=== PATIENT | male | born 1940 | race Caucasian/White ===

== ENCOUNTER 2018-12-04 16:25 | Inpatient (IN) | payer OTHER ==
[~2018-12-04] VITALS: Ht 180.3 cm; Wt 72.4 kg
[~2018-12-04 16:25] MED LIST: ALBU3IS INH; ALBU90OI PO; ALBUIS INH; ALLO300 PO; ASPI81CH PO; ATOR20 PO; ATOR80 PO; AZIT250 PO; BUDE6HFA INH; CLOP75 PO; FURO40 PO; HYDCHL25; HYDCHL25 PO; HYDR1TAB94 PO; IPRAIS NEB; K-TAB ER20 MEQ PO; LEVO750 PO; METF500 PO; METO25 PO; METO50ER PO; NITR.4SL SL; PRED20 PO; TIOT18 PO; TRAM50 PO
[2018-12-04 16:45] LABS: BASOPHILS ABSOLUTE AUTO 0.07 K/mm3 (0.00-0.23); BASOPHILS PERCENT AUTO 1 % (0-2); EOSINOPHILS ABSOLUTE AUTO 0.29 K/mm3 (0.00-0.68); EOSINOPHILS PERCENT AUTO 3 % (0-6); Hematocrit 43.5 % (37.0-53.0); Hemoglobin 13.5 g/dL (13.5-17.5); IMMATURE GRAN ABSOLUTE AUTO 0.41 K/mm3 (0.00-0.10); IMMATURE GRAN PERCENT AUTO 4 % (0-1); LYMPHOCYTES ABSOLUTE AUTO 3.25 K/mm3 (0.84-5.20); LYMPHOCYTES PERCENT AUTO 29 % (21-46); MONOCYTES ABSOLUTE AUTO 0.75 K/mm3 (0.16-1.47); MONOCYTES PERCENT AUTO 7 % (4-13); Mean Corpuscular HGB 31.1 pg (26.0-34.0); Mean Corpuscular Volume 100 fL (80-100); Mean Platelet Volume 9.1 fL (9.1-12.4); NEUTROPHILS ABSOLUTE AUTO 6.28 K/mm3 (1.96-9.15); NEUTROPHILS PERCENT AUTO 57 % (41-73); Platelet Count 273 K/mm3 (150-400); RDW Coefficient Variation 13.9 % (11.7-14.2); RDW Standard Deviation 51.9 fL (35.1-46.3); Red Blood Cell Count 4.34 M/mm3 (4.30-5.90); White Blood Cell Count 11.05 K/mm3 (4.00-11.30)
[2018-12-04 16:58] LABS: Ethanol (Alcohol), Blood, Med <3 mg/dL; Troponin I <0.015 ng/mL (0.000-0.040)
[2018-12-04 17:08] LABS: Albumin, Blood 3.2 g/dL (3.4-5.0); Albumin/Globulin Ratio 1.1 (0.8-1.8); Bilirubin, Total 0.6 mg/dL (0.1-1.0); Bun/Creatinine Ratio 12.1 (12.0-20.0); Creatinine, Blood 1.24 mg/dL (0.60-1.20); Potassium, Blood 4.1 mmol/L (3.5-5.5); Total Protein, Blood 6.2 g/dL (6.4-8.2)
[2018-12-04 17:15] LABS: Calcium, Ionized (POC) 1.18 mmol/L (1.10-1.46); Chloride (POC) 100 mmol/L (98-108); Creatinine (POC) 1.2 mg/dL (0.8-1.3); Glucose (ISTAT POC) 151 mg/dL (70-99); Hemoglobin (POC) 13.3 g/dL (13.5-17.5); Potassium (POC) 4.8 mmol/L (3.5-5.5); Sodium (POC) 140 mmol/L (135-148); Total CO2 (POC) 29 mmol/L (21-32)
[2018-12-04 17:57] LABS: Source, Urine Catheter
[2018-12-04 18:05] LABS: Appearance, Urine Clear (Clear); Bilirubin, Urine Neg (Neg); Blood, Urine 3+ (Neg); Color, Urine Yellow (P-Yellow); Glucose Qualitative, Urine Neg (Neg); Ketones, Urine Neg (Neg); Leukocyte Esterase, Urine Neg (Neg); Nitrite, Urine Neg (Neg); Protein, Urine 3+ (Neg); Specific Gravity, Urine 1.015 (1.003-1.022); Urobilinogen, Urine NORM (Normal)
[2018-12-04 18:14] LABS: Red Blood Cells, Urine 0-2 /hpf (0-2); White Blood Cells, Urine 0-2 /hpf (0-5)
[2018-12-04 18:15] LABS: Bacteria Not Seen /hpf; Squamous Epithelial Cells Few /hpf (Few)
[2018-12-04] MEDS ORDERED: TRAZ100 PO (18:35)
--- NOTE | 2018-12-04 19:30 | NUR ---
ARRIVAL TO UNIT PT ARRIVED TO ICU 9 VIA ER FLAQUITA. INTUBATED AND SEDATED. BILAT WRIST RESTRAINTS IN PLACE. RESTRAINTS REMOVED FOR TRANSFER AND CARES. ON ARRIVAL PT OPENING EYES SPONTANEOUSLY, FOLLOWING SIMPLE COMMANDS. CHEST TUBE IN PLACE TO WATER SEAL, ATTACHED TO SUCTION ON ARRIVAL. VITALS STABLE, SEE FLOWSHEET. LAB IN MULTIPLE TIMES, UNABLE TO LOCATE VESSEL FOR LABS. PLAN TO OBTAIN ADDITIONAL IV ACCESS AND OBTAIN SPECIMEN. PT HAS MULTIPLE ABRASIONS/SKIN TEARS. C SPINE COLLAR IN PLACE.
--- NOTE | 2018-12-04 20:30 | NUR ---
C-SPINE COLLAR CLEARNACE & FAMILY UPDATED PT'S DAUGHTER MITCHELL AND HER AT BEDSIDE, RE[facility]ING TO [facility]. [facility]. BARAKAT CONTACTED. PER DR. BARAKAT OK TO REMOVE C-SPINE COLLAR. DR. BARAKAT UPDATED FAMILY VIA PHONE CONVERSATION.
[2018-12-04 20:33] LABS: Base Excess Venous 3.7 mmol/L; Bicarbonate Venous 25.7 mmol/L (24.0-30.0); PCO2 Venous 56.6 mmHg (38-42); PO2 Venous 30.5 mmHg (38-42); pH Blood Venous 7.33 (7.34-7.37)
[2018-12-04] MEDS ORDERED: ATOR40TA PO (21:57)
[2018-12-04] MEDS ORDERED: Omeprazole20 M1 PO (21:57)
[2018-12-04] MEDS ORDERED: ALLO300 PO (21:58)
[2018-12-04] MEDS ORDERED: ELIQUIS5 MG PO (21:58)
[2018-12-04] MEDS ORDERED: Furosemide20 MG PO (21:59)
[2018-12-04] MEDS ORDERED: METF500C PO (21:59)
[2018-12-04] MEDS ORDERED: METO25 (22:00)
[2018-12-04] MEDS ORDERED: POTA10T PO (22:01)
[2018-12-04] MEDS ORDERED: AZIT250 PO (22:03)
[2018-12-04] MEDS ORDERED: NITR.4SL SL (22:04)
[2018-12-04] MEDS ORDERED: Ventolin5 MG/1 ML INH (22:05)
[2018-12-04] MEDS ORDERED: ALBU90OI61 INH (22:06)
[2018-12-04] MEDS ORDERED: MOME220I INH (22:08)
--- NOTE | 2018-12-05 00:40 | NUR ---
PHYSICIAN COMMUNICATION 0000 - PT HYPOTENSIVE, MINIMAL URINE OUTPUT. 500 ML BOLUS STARTED. PROPOFOL TITRATED. DR. DONATO NOTIFIED AND STATED TO CONTACT YUVAL FOR NON VENTILATOR RELATED TOPICS. DR. BARAKAT NOTIFIED, ORDER FOR BOLUS RECEIVED.
[2018-12-05 03:40] LABS: BASOPHILS ABSOLUTE AUTO 0.02 K/mm3 (0.00-0.23); BASOPHILS PERCENT AUTO 0 % (0-2); EOSINOPHILS ABSOLUTE AUTO 0.09 K/mm3 (0.00-0.68); EOSINOPHILS PERCENT AUTO 1 % (0-6); Hematocrit 31.4 % (37.0-53.0); Hemoglobin 9.7 g/dL (13.5-17.5); IMMATURE GRAN ABSOLUTE AUTO 0.04 K/mm3 (0.00-0.10); IMMATURE GRAN PERCENT AUTO 0 % (0-1); LYMPHOCYTES ABSOLUTE AUTO 0.85 K/mm3 (0.84-5.20); LYMPHOCYTES PERCENT AUTO 8 % (21-46); MONOCYTES ABSOLUTE AUTO 0.83 K/mm3 (0.16-1.47); MONOCYTES PERCENT AUTO 7 % (4-13); Mean Corpuscular HGB 30.7 pg (26.0-34.0); Mean Corpuscular HGB Conc 30.9 g/dL (31.5-36.5); Mean Corpuscular Volume 99 fL (80-100); Mean Platelet Volume 9.5 fL (9.1-12.4); NEUTROPHILS ABSOLUTE AUTO 9.34 K/mm3 (1.96-9.15); NEUTROPHILS PERCENT AUTO 84 % (41-73); Platelet Count 150 K/mm3 (150-400); RDW Coefficient Variation 14.1 % (11.7-14.2); RDW Standard Deviation 51.5 fL (35.1-46.3); Red Blood Cell Count 3.16 M/mm3 (4.30-5.90); White Blood Cell Count 11.17 K/mm3 (4.00-11.30)
[2018-12-05 04:13] LABS: Alanine Aminotransfer (ALT/SGP 19 U/L (12-78); Albumin, Blood 2.1 g/dL (3.4-5.0); Albumin/Globulin Ratio 1.1 (0.8-1.8); Alk Phos 45 U/L (50-136); Anion Gap 6 mmol/L (6-16); Aspartate Aminotrans (AST/SGOT 67 U/L (12-37); Bilirubin, Total 0.5 mg/dL (0.1-1.0); Blood Urea Nitrogen 16 mg/dL (8-24); Bun/Creatinine Ratio 14.7 (12.0-20.0); CO2, Blood 26 mmol/L (21-32); Calcium, Blood 7.4 mg/dL (8.5-10.1); Chloride, Blood 111 mmol/L (98-108); Creatinine, Blood 1.09 mg/dL (0.60-1.20); Globulin, Blood 1.9 g/dL (2.2-4.0); Glomerular Filtration Rate >60 (60-); Glucose, Blood 120 mg/dL (70-99); Potassium, Blood 3.9 mmol/L (3.5-5.5); Sodium, Blood 143 mmol/L (136-145)
--- NOTE | 2018-12-05 06:14 | NUR ---
SUMMARY SINCE PREVIOUS NOTE PT HAS HAD EPISODES OF HYPOTENSION THAT ARE RESPONSIVE TO FLUID BOLUS AND REDUCTION OF SEDATION. PT TOLERATED REDUCING OF SEDATION BUT DID BEGIN TO REACH FOR LINES/TUBES AND REQUIRED RESTRAINTS. PT HAS HAD CONTINUED LOW URINE OUTPUT. CHEST TUBE WITH MINIMAL OUTPUT THROUGHOUT NIGHT. ABLE TO GAIN ADDITIONAL IV ACCESS USING SONOSITE AND LAB SPECIMENTS DRAWN FROM IV'S PT HAS DIFFICULT ACCESS. VARIOUS FAMILY MEMBERS IN AND OUT THROUGHOUT THE NIGHT AND UPDATED. ADMIT HISTORY/MED REC COMPLETED WITH PT'S DAUGHTER MITCHELL, ONE OF HIS TWO HEALTHCARE POA'S. PT'S SECOND POA AND DAUGHTER SELVIN PROVIDED ADVANCED DIRECTIVE. WILL DISCUSS WITH DAY SHIFT RN FOR MD ROUNDING PT'S CODE STATUS, HIS HX OF DVT AND NEED FOR DVT PROPHY, SWELLING OF MULTIPLE DAYS TO LEFT ARM, AND POSSIBLE CHEST X-RAY FOR RASSESSMENT OF RESP STATUS. PLAN IS FOR VENTILATOR WEAN AND SEDATION VACATION THIS MORNING AT [address] DONATO.
--- NOTE | 2018-12-05 08:21 | NUR ---
0700-ASSUMED CARE OF PT. PT IS INTUBATED AND VENTED. LIGHTLY SEDATED WITH PROPOFOL @ 5MCG/KG/MIN. PT OPENS EYES TO VOICE. FOLLOWING COMMANDS. NODS/SHAKES HEAD TO YES/NO QUESTIONS. R CHEST TUBE IN PLACE TO LOW CONTINUOUS SUCTION. AIR LEAK NOTED IN CHEST TUBE. PT COMPLAINTS OF PAIN. 0730-SPONTANEOUS BREATHING TRIAL WAS STARTED AT THIS TIME. PT WAS STARTED WITH 8/5, PT WAS PULLING BELOW 250 ON TV, INCREASED TO 9/5. TV IMPROVED. PROPOFOL DRIP WAS TURNED OFF DURING AT THIS TIME. PT WAS MEDICATED WITH FENTANYL 12.5MCG FOR PAIN. 0815-DR. DONATO WAS NOTIFIED REGARDING PT'S CONDITION. PS WAS DOWN TO 5/5. PT TOLERATING. PULLING GOOD TIDAL VOLUMES
--- NOTE | 2018-12-05 10:57 | NUR ---
0918-PT WAS EXTUBATED AT THIS TIME. PLACED ON 4LPM NC. 0930- NOTED R UPPER CHEST SUBCUTANEOUS SWELLING HAS INCREASED FROM INITIAL ASSESSMENT SHORTLY AFTER PT WAS PLACED ON WATERSEAL. CREPITUS STILL THE SAME SAME. NOTIFIED DR. DONATO. SHE CAME TO PT'S ROOM AND ASSESSED PATIENT. PLACED CHEST TUBE TO WALL SUCTION ORDERED BY DR. DONATO. 0940-DR. BARAKAT WAS NOTIFIED REGARDING INCREASING OF SUBCUTANEOUS SWELLING, HE WAS ALSO NOTIFIED REGARDING CHEST TUBE WAS PLACED BACK ON SUCTION PER DOCTOR DONATO. INFORMED HIM PT WAS ALSO EXTUBATED. NO ORDERS RECEIVED. 1050-SUBSTATION TECHNICIAN AT BEDSIDE TO FOR THE VENOUS ULTRAOUND. SWELLING TO R CHEST HAS REMAINED THE SAME. CREPITUS STILL THE SAME FROM INITIAL ASSESSMENT.
--- NOTE | 2018-12-05 12:18 | NUR ---
PT SEEN BY DR. AGUILAR.
--- NOTE | 2018-12-05 15:57 | NUR ---
1245-SEEN BY DR. BARAKAT AT THIS TIME. UPDATED HIM OF PT'S STATUS. HE PLACED PT'S CHEST TUBE TO WATER SEAL. HE CHANGED PT'S CHEST TUBE DRESSING. HE DID NOTICE THE INCREASING SUBCUTANEOUS SWELLING TO R CHEST. 1340-DR. BARAKAT CAME BACK TO CHECK ON PT'S R CHEST. SWELLING HAS DECREASED TO 50% FROM WHERE IT WAS. STILL WITH CREPITUS. CHEST TUBE IS STILL TO WATER SEAL. 9417-PT WAS HELPED TRANSFERED FROM THE BED TO CHAIR WHICH PT TOLERATED THE TRANSFER VERY WELL. PT WAS ON HIS FEET. PT USED A WALKER WITH BED TO CHAIR TRANSFER. CURRENTLY PT IS SLEEPING AFTER RECEIVING FENTANYL. STILL ON 4LPM NC.
--- NOTE | 2018-12-05 17:42 | NUR ---
SHIFT SUMMARY: PT IS SITTING ON THE CHAIR AT THIS TIME, EATING HIS DINNER. PT WAS ABLE TO TRANSFER FROM BED TO CHAIR WITHOUT ANY DIFFICULTY USING A WALKER. CHEST TUBE STILL TO WATER SEAL, STILL HAS AIR LEAK. SUBCUTANEOUS EMPHYSEMA/ CREPITUS STILL PRESENT BUT IMPROVED. OCCASSIONAL COUGHING IN BETWEEN BITES NOTED.
--- NOTE | 2018-12-05 19:00 | NUR ---
ASSUMED CARE OF PT, REPORT RECEIVED. PT IS RESTING QUIETLY AND APPEARS TO BE SLEEPING AT THIS TIME, SATS MID 90S ON 2 L/MIN VIA NC , RESP EVEN AND REG, SHALLOW BREATHING IS NOTED.
--- NOTE | 2018-12-05 20:14 | NUR ---
PT AWAKENS EASILY FOR ASSESSMENT, DENIES N/V, DENIES CP/PRESSURE OTHER THAN THAT ASSOCIATED WITH RIB FX AND CHEST TUBE, DENIES INCREASING SOB/DYSPNEA, VOICE QUALITY IS SOFT AND SENTANCES ARE NOTED SHORT. BREATHING IS SHALLOW, SPLINTING RESPIRATIONS, SATS DECREASE TO 89-90% WITH DECREASE IN PAIN CONTROL. PT REPORTS PAIN 7/10 EXACERBATED BY BREATHING OVER AREAS OF RIB FX AND CHEST TUBE, HE DENIES PAIN IN OTHER LOCATIONS CURRENTLY. CREPITUS/SUBCUTANEOUS EMPHYSEMA NOTED OVER RIGHT UPPER CHEST, RIGHT LUNG CLEAR THROUGHOUT DIMIN MID TO BASE, LEFT WITH EXPIRATORY PLEURAL RUB OVER UPPER LOBE, CLEAR, DIM BASE, OCCASIONAL NONPRODUCTIVE COUGH IS NOTED. CHEST TUBE REMAINS IN PLACE TO RIGHT CHEST TO WATER SEAL AT THIS TIME, GOOD FLUCTUATION WITH RESPIRATION NOTED IN PLEURAVAC CHAMBER, DRESSING IS CDI.
[2018-12-06 04:01] LABS: Hematocrit 32.9 % (37.0-53.0); Hemoglobin 10.5 g/dL (13.5-17.5); Mean Corpuscular HGB 31.3 pg (26.0-34.0); Mean Corpuscular HGB Conc 31.9 g/dL (31.5-36.5); Mean Corpuscular Volume 98 fL (80-100); Mean Platelet Volume 9.9 fL (9.1-12.4); Platelet Count 169 K/mm3 (150-400); RDW Coefficient Variation 14.3 % (11.7-14.2); RDW Standard Deviation 51.4 fL (35.1-46.3); Red Blood Cell Count 3.36 M/mm3 (4.30-5.90); White Blood Cell Count 10.22 K/mm3 (4.00-11.30)
[2018-12-06 04:18] LABS: Bun/Creatinine Ratio 19.8 (12.0-20.0); Calcium, Blood 8.5 mg/dL (8.5-10.1); Creatinine, Blood 1.31 mg/dL (0.60-1.20); Potassium, Blood 4.3 mmol/L (3.5-5.5)
--- NOTE | 2018-12-06 06:31 | NUR ---
CONTACTED DR LIRIANO REGARDING PT LOW URINE OUTPUT THIS SHIFT, ORDERS OBTAINED FOR NS AT 75 ML/HR X 1 LITER. CREPITUS/SUBCUTANEOUS EMPHYSEMA CONTINUES TO RIGHT ANTERIOR CHEST, SWELLING IS SLIGHTLY INCREASED THIS AM, LUNG SOUNDS CONTINUE WITHOUT CHANGES THIS SHIFT, OXYGEN REQUIREMENTS UNCHANGED FROM 1844, PAIN CONTROL IMPROVED FOLLOWING TORADOL 30 MG IV X 1. PT STATES THAT PAIN IS WELL CONTROLLED WITH MOVEMENT, DOES CONTINUE TO BE RATED HIGH WITH COUGH, PT DECLINED OFFERED PAIN MEDICATION JUST PRIOR TO CXR THIS AM AND CONTINUED TO DECLINE PAIN MEDS ON RETURN FROM TRANSPORT. OTHERWISE NO ACUTE CHANGES THIS SHIFT
--- NOTE | 2018-12-06 08:00 | NUR ---
RECEIVED REPORT FROM GLORIA PINO, AND ASSUMED CARE OF PT.
--- NOTE | 2018-12-06 08:31 | NUR ---
DR. CERON AT BEDSIDE FOR EVALUATION. DR. CERON REMOVE OXYGEN. SATS REMAINING ABOVE 90%, DENIES SOB AND PAIN.
--- NOTE | 2018-12-06 08:40 | NUR ---
PATIENT DESATS TO 87% ON ROOM AIR, PLACED PT ON 2L O2 NC, SATS INCREASED TO 94%, REDUCED OXYGEN FLOW TO 1L, SATS REMAINING ABOVE 90%.
--- NOTE | 2018-12-06 11:01 | NUR ---
COMPASS AT BEDSIDE.
--- NOTE | 2018-12-06 14:14 | NUR ---
NURSING SUMMARY ALERT AND ORIENTED X 4. NSR HR 80'S WITH 1ST DEGREE AVB AND PAC'S. CHEST TUBE TO RIGHT SIDE SET UP TO WATER SEAL, LEAK NOTED, RIGHT UPPER CHEST/SHOULDER CREPITUS, LUNGS CLEAR, DIMINISHED AT THE BASES. ASSISTED OUT OF BED TO THE CHAIR TODAY FOR TWO HOURS. MULTIPLE VISITORS TODAY. CRUSH MEDICATIONS IN APPLE SAUCE, APPETITE IMPROVING, REGULAR DIET. PUNCTURE SITE TO RIGHT SIDE HEALING WELL. DENIES PAIN THAT REQUIRES PAIN MEDICATIONS. WILL DISCONTINUE MIDDLETON TODAY, OUTPUT THUS FAR DURING THIS SHIFT IS 200 CC. NS INFUSING AT 75 ML/HR FOR 1L. MULTIPLE FAMILY VISITORS TODAY. RIGHT AC SALINE LOCK, RIGHT WRIST 20 G INFUSING NS AT 75 ML/HR.
--- NOTE | 2018-12-06 15:27 | NUR ---
Pt open eyes with verbal stimuli. Pt informs this PC of his current health status, reflecting on the events leading up to his hospice stay. Pt very sikhism and open to talk about his beliefs. Discussion on eschatology ensued with the pt engaging well. Pt reports members of his henry community have visited and provided some spiritual support. I offered to keep the pt in my prayers and states in agreement. "Everybody needs prayer." I will remain available.
--- NOTE | 2018-12-06 18:35 | NUR ---
NURSING SUMMARY NO CHANGES FROM LAST NURSING SUMMARY EXCEPT MIDDLETON CATHETER DISCONTINUED WITH 350 CC ARACELIS URINE OUTPUT, AWAITING FIRST VOID, URINAL AT BEDSIDE.
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
--- NOTE | 2018-12-07 04:09 | NUR ---
PT VOIDS POST MIDDLETON ARE SMALL IN AMOUNT, PT'S URINE OUTPUT WAS LOW PRIOR TO MIDDLETON DC, HE STATES THAT HE DOES FEEL THAT HIS BLADDER IS EMPTIED AFTER 50 ML VOID.
[2018-12-07 05:57] LABS: BASOPHILS PERCENT AUTO 0 % (0-2); EOSINOPHILS PERCENT AUTO 0 % (0-6); Hematocrit 31.9 % (37.0-53.0); Hemoglobin 10.2 g/dL (13.5-17.5); IMMATURE GRAN ABSOLUTE AUTO 0.04 K/mm3 (0.00-0.10); IMMATURE GRAN PERCENT AUTO 1 % (0-1); LYMPHOCYTES ABSOLUTE AUTO 0.57 K/mm3 (0.84-5.20); LYMPHOCYTES PERCENT AUTO 8 % (21-46); MONOCYTES ABSOLUTE AUTO 0.57 K/mm3 (0.16-1.47); MONOCYTES PERCENT AUTO 8 % (4-13); Mean Corpuscular HGB 31.5 pg (26.0-34.0); Mean Corpuscular Volume 99 fL (80-100); Mean Platelet Volume 9.8 fL (9.1-12.4); NEUTROPHILS ABSOLUTE AUTO 6.32 K/mm3 (1.96-9.15); NEUTROPHILS PERCENT AUTO 84 % (41-73); Platelet Count 173 K/mm3 (150-400); RDW Coefficient Variation 14.1 % (11.7-14.2); RDW Standard Deviation 50.9 fL (35.1-46.3); Red Blood Cell Count 3.24 M/mm3 (4.30-5.90)
[2018-12-07 06:13] LABS: Anion Gap 5 mmol/L (6-16); Blood Urea Nitrogen 36 mg/dL (8-24); Bun/Creatinine Ratio 29.3 (12.0-20.0); CO2, Blood 28 mmol/L (21-32); Calcium, Blood 8.4 mg/dL (8.5-10.1); Chloride, Blood 106 mmol/L (98-108); Creatinine, Blood 1.23 mg/dL (0.60-1.20); Glomerular Filtration Rate >60 (60-); Glucose, Blood 114 mg/dL (70-99); Potassium, Blood 4.7 mmol/L (3.5-5.5); Sodium, Blood 139 mmol/L (136-145)
--- NOTE | 2018-12-07 07:27 | NUR ---
PT RESTS QUIETLY THROUGHOUT SHIFT, PAIN RATED WELL CONTROLLED WITH COUGH AFTER NORCO X 1 GIVEN WITH HS MEDS. CREPITUS/SUBCUTANEOUS EMPHYSEMA TO RIGHT ANTERIOR UPPER CHEST REMAINS STABLE, AIR LEAK EVIDENT IN PLEURAVAC CHAMBER HAS DECREASED THIS SHIFT. PT WAS ABLE TO GIVE STRONG COUGH WITH 0400 ASSESSMENT. SATS IMPROVED TO 98-99% WITH OXYGEN @ 2 L/MIN VIA NC. VOIDS WELL IN URINAL, LOW URINE OUTPUT THIS SHIFT, PLAN TO BLADDER SCAN WITH NEXT VOID. PT DOES FEEL THOUGH HIS BLADDER IS EMPTY AFTER VOIDS BUT IS AGREEABLE TO BLADDER SCAN. OTHERWISE NO ACUTE CHANGES THIS SHIFT.
--- NOTE | 2018-12-07 07:55 | NUR ---
DR. CERON AT BEDSIDE FOR EVALUATION.
--- NOTE | 2018-12-07 08:30 | NUR ---
DR. BARAKAT AT BEDSIDE, STATED HE MAY REMOVE THE CHEST TUBE TODAY.
--- NOTE | 2018-12-07 09:51 | NUR ---
DR. BARAKAT AT BEDSIDE, HE CLAMPED THE CHEST TUBE, ORDERED 2 VIEW CXR FOR 1300, AND GAVE ORDERS OF SUPPLIES HE NEEDS TO DISCONTINUE THE CHEST TUBE LATER TODAY.
--- NOTE | 2018-12-07 13:00 | NUR ---
PATIENT TAKEN TO RADIOLOGY FOR CXR.
--- NOTE | 2018-12-07 13:52 | NUR ---
NURSING SUMMARY ALERT AND ORIENTED X4, SLOW VERBAL RESPONSE TO QUESTIONS. LUNGS CLEAR, DIMINISHED AT BASES, 1-2 L O2 NC, KEEPING SATS ABOVE 90%, CHEST TUBE TO RIGHT CHEST, CLAMPED BY DR. BARAKAT THIS MORNING, CHEST XRAY COMPLETED AT 1300, NO ADDITIONAL SOB OR DIFFICULTY BREATHING, DR. BARAKAT MIGHT DISCONTINUE THE CHEST TUBE THIS AFTERNOON AFTER REVIEWING THE CHEST XRAY. PATIENT DOES DESAT WITH EXERTION BUT SATS COME UP NICELY WITHIN A COUPLE OF MINUTES. CALLS FOR ASSISTANCE TO THE BATHROOM APPROPRIATELY, VOIDS PER BATHROOM OR URINAL. EDEMA TO BILATERAL ARMS, NOTED MORE EDEMA TO ARMS ABOVE DRESSINGS AND LAB DRAW WRAPS, REMOVED DRESSINGS AND ELEVATED ARMS ON PILLOWS. RIGHT CHEST PUNCTURE SITE WITH DRESSING IN PLACE, CREPITUS, C/O MILD RIB FRACTURE AREA PAIN WITH COUGHING AND USING THE INCENTIVE SPIROMETER, GAVE TORADOL IV. TOLERATING A REGULAR DIET, EATING WELL. RIGHT AC 20G SALINE LOCK AND RIGHT WRIST 20G SALINE LOCK.
--- NOTE | 2018-12-07 16:45 | NUR ---
DR. BARAKAT AT BEDSIDE, ASSISTED WITH DISCONTINUING PT'S RIGHT CHEST TUBE. PATIENT TOLERATED WELL, O2 SATS REMAINING ABOVE 90%, 2L NC O2 SATS 97%, REDUCED OXYGEN FLOW TO 1L, SATS REMAINING ABOVE 90%.
--- NOTE | 2018-12-07 19:00 | NUR ---
ASSUMED CARE ASSUMED CARE OF PATIENT. AWAKE AND ALERT. ORIENTED X 3 AND COOPERATIVE WITH CARE. PT IS ABLE TO ASSIST WITH REPOSITIONING. DENIES C/O PAIN OR DISCOMFORT AT THIS TIME, BUT DOES MOVE STIFFLY. O2 @ 1LNC. RESPIRATIONS EVEN AND UNLABORED AT REST. OCCASIONAL WEAK NON-PRODUCTIVE COUGH. USES IS WITH ENCOURAGEMENT. MONITOR SHOWS NSR WITH FIRST DEGREE AV BLOCK AND OCCASIONAL PACs, RATE 70s. VOIDING SMALL AMOUNTS (50-75CC) OF URINE AT A TIME. ANTERIOR RIGHT CHEST WITH SUBCUTANEOUS EMPHYSEMA AND CREPITUS NOTED. DRSG C/D/I. SEE SHIFT ASSESSMENT FOR FULL ASSESSMENT.
--- NOTE | 2018-12-08 01:30 | NUR ---
PAIN/CONFUSION PT AWAKE AND ALERT, BUT SLIGHTLY DOSPRIENTED TO PLACE AND TIME. WEAK ATTEMPT TO CLIMB OUT OF BED. PT STATES "I NEED TO GET UP SO I CAN TAKE A SHOWER." REORIENTED TO TIME AND PLACE. PT C/O GENERAL PAIN WELL NECK PAIN. MEDICATED WITH TORADOL 15MG IV. REPOSITIONED FOR COMFORT.
--- NOTE | 2018-12-08 05:54 | NUR ---
SHIFT SUMMARY NO ACUTE CHANGES DURING NOC. SLEPT VERY LITTLE THROUGH BEGINNING/MIDDLE OF SHIFT. PT SLEPT FROM APPROXIMATELY 0230 TO 0600. ROUSES TO STIMULI. MEDICATED X 1 WITH IV TORADOL FOR PAIN WITH GOOD RELIEF. VSS T/O NOC. O2 NOW @ 1.5LNC. RESPIRATIONS UNLABORED AT REST, OCCASIONALLY TACHYPNEIC. OCCASIONAL MOIST NON-PRODUCTIVE COUGH. USES IS WITH REMINDERS/ENCOURAGEMENT. CONTINUES TO VOID 50-75CC OF URINE Q1-2H. NO CHANGE NOTED IN SUBCUTANEOUS EMPHYSEMA/CREPITUS. WILL REPORT TO DAY SHIFT RN WHEN AVAILABLE.
--- NOTE | 2018-12-08 09:17 | NUR ---
NURSING ICU DAYSHIFT: Assumed care of pt at approx 0700. A/O, pleasant, cooperative w/care. Speech is mildly slow/slurred though this improved after being fully awake and having some oral care. C/O 6/10 neck pain/discomfort. Skin is fragile w/scattered bruising and multiple abrasions. Heart monitor in place, NSR w/1st degree block, PVC's/PAC's, no c/o CP/pressure, HTN prior to a.m. meds. L/S w/scattered wheezes t/o, dim bases, fin bibasilar crackles, crepitus noted to R ACW and R posterior mid torso. Abd SNT, BT+, voiding small amts of urine frequently though w/o difficulty. PIV x1, s/l. No s/s of acute distress at this time. Seen by PMD, new d/o received. Pt changed to medical status w/o tele, awaiting bed assignment. PMD place pt on RA though O2 sat decreased to mid 80's at later assessment, placed pt back on 1L NC. 2V CXR completed, pt currently OOB in a chair, tolerating well, cont to monitor for any changes.
--- NOTE | 2018-12-08 13:07 | NUR ---
NURSING ICU TRANSFER SUMMARY: No acute changes noted t/o the a.m. Daughters at bedside intermittently t/o the a.m., updates provided. Pt continued to c/o neck sorenes t/o the a.m., toradol administered, pt appears more comfortable at this time. Worked w/therapy, tolerated fairly well though continues to experience dyspnea w/exertion, required 2L NC w/exertion to maintain O2 sat >90%. Seen by surgeon, ok'd for discharge for surgery standpoint. Pt and family deny any questions/needs at this time. Pt remains medical status, bed surgical unit room assignment received, awaiting callback from accepting RN. Call light remains in reach, cont to monitor until transfer is completed.
--- NOTE | 2018-12-08 15:23 | NUR ---
PERMISSION FOR CARE PATIENT GAVE THIS RAT EXTERMINATOR PERMISSION TO CARE FOR HIM DURING THE DAY OF DECEMBER 09, 2017
--- NOTE | 2018-12-08 17:25 | NUR ---
PT TRANSFERED FROM ICU. ON 1L O2, MAKES A BIG DIFFERENCE FOR PT'S O2 LEVEL. PT LUNGS WHEESING HEARD ALL THROUGHOUT. ENCOURAGING INCENTIVE SPIROMETER USE EVERY HR. PT USES URINAL. DEPENDS IN PLACE WELL. SKIN BRUISED AND REDENED THROUGHOUT. SCARS AND WOOUNDS, IMAGES IN CHART. NO C/O PAIN SINCE TRANSFER. C/O NO BOWEL MOVEMENT IN A WEEK, MEDICATED PER EMAR. CALL ALANA BREAUX, WILL CTM.
--- NOTE | 2018-12-09 04:31 | NUR ---
SHIFT SUMMARY: NO ACUTE CHANGES THIS SHIFT. PAIN MANAGED WITH NORCO ONCE THIS SHIFT. PT C/O PAIN AND SOB DURING REPOSITIONING. INCONTINENT X2. USING URINAL WITH ASSISTANCE. ATTENDS IN PLACE. SATS MAINTAINED ABOVE 90% ON 1 L O2 NC. WHEEZING AUSCULTATED UPON EXERTION. RT NOTIFIED FOR TX. JOSUÉ MEDS CRUSHED WITH SEAN PUDDING. PT RESTING MOST OF SHIFT. NO CONCERNS AT THIS TIME. PT USING CALL LIGHT APPROPRIATELY. PLAN IS FOR PT TO DISCHARGE TODAY.
[2018-12-09 05:09] LABS: BASOPHILS PERCENT AUTO 0 % (0-2); EOSINOPHILS ABSOLUTE AUTO 0.02 K/mm3 (0.00-0.68); EOSINOPHILS PERCENT AUTO 0 % (0-6); Hematocrit 31.6 % (37.0-53.0); IMMATURE GRAN ABSOLUTE AUTO 0.03 K/mm3 (0.00-0.10); IMMATURE GRAN PERCENT AUTO 0 % (0-1); LYMPHOCYTES ABSOLUTE AUTO 0.86 K/mm3 (0.84-5.20); LYMPHOCYTES PERCENT AUTO 13 % (21-46); MONOCYTES ABSOLUTE AUTO 0.62 K/mm3 (0.16-1.47); MONOCYTES PERCENT AUTO 9 % (4-13); Mean Corpuscular HGB 30.9 pg (26.0-34.0); Mean Corpuscular HGB Conc 31.6 g/dL (31.5-36.5); Mean Corpuscular Volume 98 fL (80-100); NEUTROPHILS ABSOLUTE AUTO 5.16 K/mm3 (1.96-9.15); NEUTROPHILS PERCENT AUTO 77 % (41-73); Platelet Count 200 K/mm3 (150-400); RDW Coefficient Variation 13.9 % (11.7-14.2); RDW Standard Deviation 49.5 fL (35.1-46.3); Red Blood Cell Count 3.24 M/mm3 (4.30-5.90); White Blood Cell Count 6.69 K/mm3 (4.00-11.30)
--- NOTE | 2018-12-09 18:19 | NUR ---
SHIFT SUMMARY PT HAD EPISODE OF WHAT APPEARED TO BE ASPIRATION THIS SHIFT DURING BREAKFAST-DR CERON IN ROOM AT TIME OF SECOND EPISODE. SPEECH THERAPY ORDERED PT NPO-SUCTION SWABS FOR ORAL CARE. IVF 1 L NS ORDERED @125/HR. ALL DAILY MEDICATIONS HELD. HAS DENIED PAIN, UP TO CHAIR. SOB INCREASED WITH EXCERTION BUT RECOVERS QUICKLY, O2 SAT 95% ON 1L O2NC. PLAN IS TO FOLLOW UP WITH SPEECH THERAPY TOMORROW.
--- NOTE | 2018-12-09 23:11 | NUR ---
PATIENT COMPLAINED OF FEELING SHORTNESS OF BREATH. RN NOTIFIED. RESP THERAPY CALLED. PATIENT SITTING 80 DEG UP IN CHAIR.
--- NOTE | 2018-12-10 03:10 | NUR ---
ORAL CARE: TOOK OUT PT DENTURES AT ABOUT 0130. PT MOUTH MOISTENED SLIGHTLY AND SUCTIONED SMALL AMOUNT THICK WHITE SPUTUM.
--- NOTE | 2018-12-10 06:18 | NUR ---
SHIFT SUMMARY: PT HAS INTERMITTENTLY C/O OF SOB. RESPIRATORY TX GIVEN X1. PT SUCTIONED PRN. C/O SOME BACK PAIN. GIVEN FENTANYL. PT NPO R/T ASPIRATION RISK. UP IN CHAIR MOST OF SHIFT. USING URINAL WITH ASSISTANCE.
--- NOTE | 2018-12-10 13:46 | NUR ---
90% ON 1L NC WHILE SITTING IN CHAIR.
--- NOTE | 2018-12-10 14:26 | NUR ---
ASSUMED CARE OF PT. PT IS RESTING IN BED WITH MULTIPLE FAMILY MEMBERS PRESENT. DENIES ANY NEEDS DENIES ANY COMPLAINTS. CALL LIGHT IN REACH.
--- NOTE | 2018-12-10 17:19 | NUR ---
PT RESTING WELL. NO C/O. PLAN FOR DISCHARGE TOMORROW WITH DAUGHTER ON H/H WITH POSSIBLE OXYGEN. HAS BEEN INCREASING MOBILITY TODAY. PAIN IS TOLERABLE. CALL LIGHT IN REACH.
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
--- NOTE | 2018-12-11 10:07 | NUR ---
DAUGHTER CALLED UPDATED ON PT CURRENTLY BEING ON RA AFTER AMBULATING IN [place] W/PT. ADVISED PT VERY SLOW IN TAKING MEDS, APPEARED TO HAVE DIFFICULTY SWALLOWING. ADVISED PT MUST CONTINUE NECTAR THICK LIQUIDS EVEN THOUGH DOES NOT LIKE. PT'S DAUGHTER VERBALIZED UNDERSTANDING. PT'S DAUGHTER CONCERNED ABOUT TOILETING AT HOME. WISHES STAFF TO ENCOURAGE PT TO AMBULATE TO RESTROOM TO VOID HAS YOUNG CHILDREN AT HOME AND WILL NOT BE APPROPRIATE FOR PT TO USE URINAL IN COMMON LIVING AREAS. DAUGHTER REPORTED PT HAS NOT BEEN TAKING ANY OF HOME MEDS EXCEPT TRAZADONE AT NIGHT. PT'S PCP AWARE.
--- NOTE | 2018-12-11 17:23 | NUR ---
SUMMARY NO ACUTE CHANGES T/O SHIFT. PT HAS BEEN ON RA. AMBULATED DOWN TO ORTHO GYM TWICE THIS SHIFT. MEDICATED ONCE DURING SHIFT PER ORDERS FOR R SIDE PAIN. ADVANCED DIET TO THIN LIQUIDS W/SPOON AND MECHANICAL SOFT W/GROUND MEAT, PILLS WHOLE ONE AT A TIME W/PUDDING OR APPLESAUCE. PT PLEASANT AND COOPERATIVE. FAMILY IN THIS SHIFT TO SEE PT. PLAN TO DC HOME TOMORROW.
--- NOTE | 2018-12-11 19:27 | NUR ---
DAUGHTER PRINCE CALLED TO CHECK ON PATIENT STATUS, GIVEN BRIEF UPDATE.
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
[2018-12-12] MEDS ORDERED: ACET500 PO (13:39)
--- NOTE | 2018-12-12 16:27 | NUR ---
CHANGED DRESSING TO PT'S LEFT HAND TOLERATED WELL.
--- NOTE | 2018-12-12 16:54 | NUR ---
REVIEWED DC PAPERWORK W/FAMILY AND PT VERBALIZED UNDERSTANDING. LEFT UNIT IN WC ACCOMPANIED BY DAUGHTERS W/POSSESSIONS AND DC PAPERWORK IN HAND.
== END 2018-12-12 16:52 | disposition home health service (06) | DRG 208 ==
LOC: ER 16:25 → ICUW 17:52 → SURS 12-08 14:00
PROVIDERS: Emergency Medicine; Hospitalist; Internal Medicine; Internal Medicine Pulmonary Disease; ADMIT Surgery
PROC: 5A1935Z Respiratory Ventilation, Less than 24 Consecutive Hours (ICD-10-PCS; principal; 2018-12-04)
DX: J94.2 Hemothorax (principal); J96.01 Acute respiratory failure with hypoxia; S22.41XA Multiple fractures of ribs, right side, initial encounter for closed fracture; T79.7XXA Traumatic subcutaneous emphysema, initial encounter; I50.32 Chronic diastolic (congestive) heart failure; R40.2432 Glasgow coma scale score 3-8, at arrival to emergency department; Z86.73 Personal history of transient ischemic attack (TIA), and cerebral infarction without residual deficits; E11.9 Type 2 diabetes mellitus without complications; Z98.52 Vasectomy status; Z87.891 Personal history of nicotine dependence; Z79.82 Long term (current) use of aspirin; I25.10 Atherosclerotic heart disease of native coronary artery without angina pectoris; G47.30 Sleep apnea, unspecified; Z95.1 Presence of aortocoronary bypass graft; T14.8XXA Other injury of unspecified body region, initial encounter; V89.2XXA Person injured in unspecified motor-vehicle accident, traffic, initial encounter; Y92.9 Unspecified place or not applicable; J43.9 Emphysema, unspecified; Z86.718 Personal history of other venous thrombosis and embolism; L30.9 Dermatitis, unspecified; M19.90 Unspecified osteoarthritis, unspecified site; N40.0 Benign prostatic hyperplasia without lower urinary tract symptoms; Z66 Do not resuscitate; Z79.84 Long term (current) use of oral hypoglycemic drugs; I11.0 Hypertensive heart disease with heart failure
CPT/HCPCS: 31500; 31720; 32551; 36415; 51702; 70450; 71045; 71046; 71260; 72125; 74177; 80047; 80048; 80053; 81001; 82803; 82947; 83605; 84484; 85014; 85025; 85027; 86850; 86900; 86901; 90471; 90714; 92526; 92610; 93005; 93010; 93971; 94002; 94003; 94640; 94667; 94760; 94762; 96365; 96375; 97110; 97116; 97162; 97165; 97530; 97535; 99291-25; 99292; C1751; C9113; G0390; G0480; J0330; J0690; J1885; J1940; J2920; J3010; J7030; J7120; Q9967